=== PATIENT | female | born 1985 | race Caucasian/White ===

== ENCOUNTER 2016-08-24 10:00 | Outpatient (RCR) | payer BC | END 2016-09-10 | disposition still patient (30) | LOC: MKS.ESL.PT | DX: S72.091D Other fracture of head and neck of right femur, subsequent encounter for closed fracture with routine healing (principal); X58.XXXD Exposure to other specified factors, subsequent encounter; M25.541 Pain in joints of right hand ==

== ENCOUNTER 2016-09-11 08:43 | Outpatient (RCR) | payer BC | END 2016-09-14 08:44 | disposition home or self-care (01) | LOC: MKS.ESL.PT 08:43 | DX: M25.551 Pain in right hip (principal) ==

== ENCOUNTER 2017-03-28 13:47 | Emergency (ER) | payer BC ==
[~2017-03-28] VITALS: Ht 167.6 cm; Wt 90.9 kg
[2017-03-28 13:49] VITALS: BP 123/70; TEMP 99.2
[2017-03-28] MEDS ORDERED: ZOLOFT 50MG50 MG PO (14:04)
[2017-03-28] MEDS ORDERED: SINGULAIR 110 MG/TAB PO (14:04)
[2017-03-28] MEDS ORDERED: ATIVAN 0.50.5 MG/TAB PO ×2 (14:04→15:00)
[2017-03-28] MEDS ORDERED: ASMANEX HF200 MCG/Ac IH (14:04)
[2017-03-28] MEDS ORDERED: PROAIR HFA0.09 MG/AC IH (14:05)
[2017-03-28] MEDS ORDERED: AMOXICILLIN 8751 TAB PO (14:06)
[2017-03-28] MEDS ORDERED: QUASENSE 30 MCG1 TAB PO (14:06)
[2017-03-28] MEDS ORDERED: DESYREL 50MG50 MG PO (14:06)
[2017-03-28] MEDS ORDERED: PREDNISONE20 MG PO (14:39)
[2017-03-28 15:06] VITALS: PULSE 99
== END 2017-03-28 15:07 | disposition home or self-care (01) ==
LOC: COL.ER 13:47
DX: J45.901 Unspecified asthma with (acute) exacerbation (principal); J32.9 Chronic sinusitis, unspecified
CPT/HCPCS: J7512

== ENCOUNTER 2018-03-18 10:45 | Outpatient (RCR) | payer BC ==
[~2018-03-18 10:45] MED LIST: AMOXICILLIN 8751 TAB PO; ASMANEX HF200 MCG/Ac IH; ATIVAN 0.50.5 MG/TAB PO; DESYREL 50MG50 MG PO; PREDNISONE20 MG PO; PROAIR HFA0.09 MG/AC IH; QUASENSE 30 MCG1 TAB PO; SINGULAIR 110 MG/TAB PO; ZOLOFT 50MG50 MG PO
== END 2018-04-10 | disposition home or self-care (01) ==
LOC: MKS.ESL.PT
DX: M25.551 Pain in right hip (principal); M25.511 Pain in right shoulder; M54.2 Cervicalgia

== ENCOUNTER 2020-05-14 13:44 | Emergency (ER) | payer BC ==
[~2020-05-14] VITALS: Ht 167.6 cm; Wt 100.0 kg
[2020-05-14 13:53] VITALS: TEMP 98
[2020-05-14] MEDS ORDERED: SYNTHROID0.075 MG/T PO (14:39)
[2020-05-14 14:42] VITALS: BP 121/88; PULSE 71
[2020-05-14] MEDS ORDERED: ZITHROMAX Z PA250 MG PO (14:48)
[2020-05-14] MEDS ORDERED: PREDNISONE20 MG PO (14:48)
[2020-05-14] MEDS ORDERED: IPRATROPIUM BROM3 M1 IH (14:48)
[2020-05-14] MEDS ORDERED: ZOFRAN ODT4 MG PO (14:49)
== END 2020-05-14 15:08 | disposition home or self-care (01) ==
LOC: COL.ER 13:44
DX: J45.901 Unspecified asthma with (acute) exacerbation (principal); Z20.828 Contact with and (suspected) exposure to other viral communicable diseases

== ENCOUNTER 2020-10-04 10:45 | Outpatient (RCR) | payer BC ==
[~2020-10-04 10:45] MED LIST changes: +IPRATROPIUM BROM3 M1 IH; +SYNTHROID0.075 MG/T PO; +ZITHROMAX Z PA250 MG PO; +ZOFRAN ODT4 MG PO
== END 2020-11-12 ==
LOC: MKS.ESL.PT
DX: M25.551 Pain in right hip (principal); W19.XXXA Unspecified fall, initial encounter

== ENCOUNTER 2020-10-04 15:34 | Outpatient (RCR) | payer BC | END 2020-11-20 11:36 | disposition home or self-care (01) | LOC: MKS.ESL.PT 15:34 | DX: M25.551 Pain in right hip (principal); R10.2 Pelvic and perineal pain; Z91.81 History of falling ==

== ENCOUNTER → 2022-10-06 | Outpatient (CLI) | payer OTHER | LOC: COL.RAD 07:39 | DX: J34.1 Cyst and mucocele of nose and nasal sinus (principal) ==

== ENCOUNTER → 2022-12-11 | Outpatient (CLI) | payer OTHER | LOC: COL.RAD 09:17 | DX: N94.6 Dysmenorrhea, unspecified (principal); N92.1 Excessive and frequent menstruation with irregular cycle ==